=== PATIENT | female | born 1970 | race Caucasian/White ===

== ENCOUNTER → 2019-07-12 | Outpatient (CLI) | payer BC ==
[2019-07-12 10:12] LABS: Basophils % (A) 0 %; Eosinophils # (A) 0.2 k/uL (0-0.7); Eosinophils % (A) 2 %; HCT 44.1 % (34.0-46.0); HGB 14.1 gm/dL (11.4-16.0); Lymphocytes # (A) 1.8 k/uL (1.0-4.8); Lymphocytes % (A) 27 %; MCH 28.2 pg (25.0-35.0); MCHC 31.9 g/dL (31.0-37.0); MCV 88.3 fL (80.0-100.0); Mean Platelet Volume 7.5; Monocytes # (A) 0.3 k/uL (0-1.0); Monocytes % (A) 4 %; Neutrophils # (A) 4.1 k/uL (1.3-7.7); Neutrophils % (A) 64 %; Platelet Count 306 k/uL (150-450); RBC 4.99 m/uL (3.80-5.40); RDW 13.8 % (11.5-15.5); WBC 6.5 k/uL (3.8-10.6)
[2019-07-12 10:21] LABS: African American GFR (CKD) >90 (>60 ml/min/1.73 sqM); Anion Gap 10 mmol/L; Blood Urea Nitrogen 11 mg/dL (7-17); Carbon Dioxide 23 mmol/L (22-30); Chloride 106 mmol/L (98-107); Glucose 95 mg/dL (74-99); Non-African American GFR(CKD) >90 (>60 ml/min/1.73 sqM); Potassium 3.9 mmol/L (3.5-5.1); Sodium 139 mmol/L (137-145)
== END | disposition home or self-care (01) ==
LOC: LABWHC1 09:09
PROVIDERS: ATTEND Obstetrics & Gynecology
DX: Z01.818 Encounter for other preprocedural examination (principal); N83.299 Other ovarian cyst, unspecified side; N83.209 Unspecified ovarian cyst, unspecified side
CPT/HCPCS: 80051; 82565; 82947; 84520; 85025; 87086; 87635

== ENCOUNTER → 2019-07-14 | Outpatient (CLI) | payer BC | END | disposition home or self-care (01) | LOC: LABWHC1 08:46 | PROVIDERS: ATTEND Obstetrics & Gynecology | DX: Z11.59 Encounter for screening for other viral diseases (principal) | CPT/HCPCS: 87635 ==

== ENCOUNTER 2019-07-17 09:21 | Inpatient (IN) | payer BC ==
[2019-07-13 15:21] VITALS: BMI 22.8
[~2019-07-17 09:21] MED LIST: DEXAMETHASONE SOD PHOSPHATE 10 MG/ML 1 ML VIAL IV ONE; HYDROmorphone 0.5 MG/0.5 ML SYRINGE IVP PRN; ONDANSETRON 4 MG/2 ML VIAL IVP ONE
[2019-07-17] MEDS: LACTATED RINGERS 1,000 ML IV SCH ×2 (10:59→23:46)
[2019-07-17] MEDS ORDERED: MIDAZOLAM 2 MG/2 ML VIAL IVP ONE (11:24)
[2019-07-17] MEDS ORDERED: NEOSTIGMINE 1 MG/ML 10 ML VIAL ONE (11:41)
[2019-07-17] MEDS ORDERED: MORPHINE SULFATE (PF) 0.3 MG/0.3 ML SYR ONE (11:41)
[2019-07-17] MEDS ORDERED: fentaNYL (PF) 50 MCG/ML 2 ML AMP ONE (11:41)
[2019-07-17] MEDS ORDERED: SUCCINYLCHOLINE CHLORIDE 100 MG/5 ML SYR IV ONE (11:41)
[2019-07-17] MEDS ORDERED: diphenhydrAMINE 50 MG/ML 1 ML VIAL ONE (11:41)
[2019-07-17] MEDS ORDERED: GLYCOPYRROLATE 0.2 MG/ML 2 ML VIAL ONE (11:41)
[2019-07-17] MEDS ORDERED: PHENYLEPHRINE-0.9% NACL SYG 1 MG/10 ML SYRINGE ONE (11:41)
[2019-07-17] MEDS ORDERED: KETOROLAC 30 MG/ML 1 ML VIAL ONE (11:41)
[2019-07-17] MEDS ORDERED: MIDAZOLAM 2 MG/2 ML VIAL ONE (11:41)
[2019-07-17] MEDS ORDERED: ROCURONIUM BROMIDE 10 MG/ML 5 ML VIAL IV ONE (11:41)
[2019-07-17] MEDS ORDERED: HYDROmorphone (PF) 1 MG/ML ONE (11:41)
[2019-07-17] MEDS ORDERED: PROPOFOL 10 MG/ML 20 ML VIAL IV ONE (11:41)
[2019-07-17] MEDS ORDERED: LIDOCAINE 1% INJ 10MG/ML (20 ML MDV) ONE (11:41)
[2019-07-17] MEDS ORDERED: SODIUM CHLORIDE 0.9% 50 ML with ceFAZolin 2,000 MG IV ONE ×2 (11:52)
[2019-07-17] MEDS ORDERED: ZOLPIDEM 5 MG TAB PO PRN (12:39)
[2019-07-17] MEDS ORDERED: diphenhydrAMINE 50 MG/ML 1 ML VIAL IVP PRN (12:39)
[2019-07-17] MEDS ORDERED: METOCLOPRAMIDE 5 MG/ML 2 ML VIAL IVP PRN (12:39)
[2019-07-17] MEDS ORDERED: IBUPROFEN 600 MG TAB PO PRN (12:39)
[2019-07-17] MEDS ORDERED: ONDANSETRON 4 MG/2 ML VIAL IVP PRN (12:39)
[2019-07-17] MEDS ORDERED: SIMETHICONE 80 MG CHEWABLE PO PRN (12:39)
[2019-07-17] MEDS ORDERED: KETOROLAC 30 MG/ML 1 ML VIAL IVP PRN (12:39)
--- NOTE | 2019-07-17 12:39 | P.OP ---
Date of Procedure: 07/17/19 Preoperative Diagnosis: Complex right ovarian cyst, simple appearing left ovarian cyst Postoperative Diagnosis: Complex fluid-filled benign-appearing right ovarian cyst, hemorrhagic appearing complex left ovarian cyst, suspect hemosalpinx and or endometriosis Procedure(s) Performed: Exploratory laparotomy, pelvic washings, bilateral salpingo-oophorectomy. Anesthesia: GETA Surgeon: Coco Peres Energy Director #1: Roderick Chaudhry Estimated Blood Loss (ml): 30 IV fluids (ml): 400 Urine output (ml): 30 Pathology: other (Bilateral tubes and ovaries) Condition: stable Disposition: PACU Operative Findings: The right ovarian cyst was complex in nature, multiloculated, cystic. The left ovarian cyst appeared hemorrhagic or possibly consistent with endometriosis, with blood noted in the distended left tube. Uterus appeared normal. Description of Procedure: Patient is brought to the operating suite after a spinal with Duramorph is placed preoperatively. She is put in the dorsal supine position. Antibiotics are given. Urine hCG is negative. The appropriate timeout is performed to assure proper patient and procedural identification. Peralta catheter placed to direct drainage. The abdomen is prepped and draped in usual sterile fashion. A low transverse skin incision is made in this is carried down through the subcutaneous tissue. Rash is isolated, scored, and extended bilaterally with curved Schmitt scissors. Peritoneum is next identified and incised, there is no bowel or bladder involvement. Sterile saline is placed in the abdomen and the organs are washed, the fluid is taken aside and a Lukey trap. The right ovary and tube are mobilized and brought into the incision. Keshawn clamps are used across the base of the ovary and the tube and ovary are removed and sent to pathology. Dr. Cleary of pathology for cyst that this appears completely benign. 0 Vicryl suture is used and the pedicle is tied, flashed, and retied for excellent hemostasis. The left ovary is then brought into the surgical field. It to appears distended with multiple loculated cysts, darkened areas and distended dark to possibly consistent with hemosalpinx or endometriosis. The patient requested the ovary to be removed if it with anything more than a simple functional appearing cyst. For this reason, Keshawn clamp is used across the pedicle and the left tube and ovary are also removed intact. 0 Vicryl sutures used to tie the pedicle, it is flashed, and retied again for excellent hemostasis. The uterus appears completely normal to inspection. No other anomalies are identified. Peritoneum was allowed to close by secondary intention. Fascia is closed in a 0 Vicryl stitch, running, with over ligation in the midline. Subcutaneous tissue is irrigated, noted to be clean and dry. 4-0 undyed Monocryl is used for final skin closure. All sponge needle and enhancement counts are correct at the end of the procedure. Peralta is noted to be draining clear urine. Patient is brou ght back to recovery room in excellent condition with a blood pressure of 92/60, pulse 75. Toradol is given prior to leaving the operative suite.
[2019-07-17] MEDS ORDERED: MEPERIDINE 50 MG/ML SYRINGE IVP ONE (13:38)
[2019-07-17] MEDS ORDERED: LACTATED RINGERS 500 ML IV ONE (15:45)
[2019-07-17] MEDS ORDERED: lamoTRIgine 25 MG TAB PO SCH (21:00)
[2019-07-17] MEDS ORDERED: SERTRALINE 100 MG TAB PO SCH (21:00)
[2019-07-17] MEDS ORDERED: ALPRAZolam 0.5 MG TAB PO PRN (21:59)
[2019-07-17 23:46] VITALS: BP 159/59
[2019-07-18] MEDS: LACTATED RINGERS 1,000 ML IV SCH ×2 (01:03)
[2019-07-18 05:01] VITALS: RESP 18
--- NOTE | 2019-07-18 08:20 | P.DS ---
Providers Date of admission: 07/17/19 10:22 Expected date of discharge: 07/18/19 Attending physician: Coco Peres Primary care physician: To[facility] Hospital Course: This is a 48-year-old white female who presented with an enlarged septated right ovarian cyst. A left ovarian cyst was noted sonographically as well. OVA-1 testing was performed and within normal limits. The right ovarian cyst was monitored conservatively, but was noted to have enlarged over the course of 3 months. Decision was made for surgical palliation. Please see admitting history and physical for details. The patient underwent an exploratory laparotomy, bilateral salpingo-oophorectomy under my care. Both cysts were sent to pathology, preliminary diagnosis was that of benign nature. Uterus appeared normal and was left in situ. Patient did well intraoperatively with an estimated blood loss of 30 mL's. Please see dictated operative note for details. This morning the patient is doing well. She is voiding, and bleeding and passing flatus without difficulty. Vital signs are stable and she is afebrile. Incision is clean and dry, intact, Steri-Strips applied. No vaginal bleeding. Pain is well managed. Patient is judged to be in good condition for discharge home. I have reminded her no intercourse, tampons or douching. She will use [id number] Advil or Aleve, or ibuprofen as needed for pain. Incision care and has been reviewed. She will call with any fevers shakes or chills, redness or drainage of the incision, with any pain not alleviated by [id number] products, or indeed with any concerns. Assessment: Doing well postoperative day #1 Plan - Discharge Summary Discharge Rx Participant: No New Discharge Prescriptions: No Action lamoTRIgine [LaMICtal] 25 mg PO HS Sertraline HCl [Zoloft] 100 mg PO HS Loestrin 1-10 Tab 1 tab PO HS Acetaminophen [Tylenol Extra Strength] 500 - 1,000 mg PO DIRECTED PRN PRN Reason: Pain Discharge Medication List Acetaminophen [Tylenol Extra Strength] 500 - 1,000 mg PO DIRECTED PRN 07/13/19 [History] Loestrin 1-10 Tab 1 tab PO HS 07/13/19 [History] Sertraline HCl [Zoloft] 100 mg PO HS 07/13/19 [History] lamoTRIgine [LaMICtal] 25 mg PO HS 07/13/19 [History] Follow up Appointment(s)/Referral(s): Coco Peres MD [STAFF PHYSICIAN] - 2 Weeks
[2019-07-18 09:20] VITALS: PULSE 97
[2019-07-18 09:21] VITALS: TEMP 97.8
--- NOTE | 2019-07-18 10:45 | P.PN ---
Progress Note - Text Progress Note Date: 07/18/19 Patient seen and examined at beside. POD #1 from exploratory laparotomy with spinal duramorph for post operative pain control requested by the surgeon. Patient tolerated procedure well and has no complaints today. Patient denies CP, SOB, fevers, chills, back pain, numbness, headaches, dizziness. Patient can ambulate without difficulty and is voiding normally. procedure site is clean, dry without erythema. All questions answered.
== END 2019-07-18 09:34 | disposition home or self-care (01) | DRG 743 ==
LOC: 2ORMAIN 10:22 → 6PED 13:53
PROVIDERS: ADMIT Obstetrics & Gynecology; ATTEND Obstetrics & Gynecology
PROC: 0UT70ZZ Resection of Bilateral Fallopian Tubes, Open Approach (ICD-10-PCS; principal; 2019-07-17 12:00)
PROC: 0UT20ZZ Resection of Bilateral Ovaries, Open Approach (ICD-10-PCS; principal; 2019-07-17 12:00)
DX: N80.1 Endometriosis of ovary (principal); D27.0 Benign neoplasm of right ovary; D27.1 Benign neoplasm of left ovary; F41.9 Anxiety disorder, unspecified; Z88.2 Allergy status to sulfonamides; Z80.3 Family history of malignant neoplasm of breast; Z88.7 Allergy status to serum and vaccine; Z79.899 Other long term (current) drug therapy
CPT/HCPCS: 80051; 82565; 82947; 84520; 85025; 87086; 87635; 88307; 88342

== ENCOUNTER → 2019-10-02 | Outpatient (CLI) | payer BC ==
--- NOTE | 2019-10-03 09:06 | MM ---
Reason for exam: screening (asymptomatic). Last mammogram was performed 1 year and 7 months ago. History: Patient is postmenopausal. Family history of breast cancer in mother at age 40. Took hormonal contraceptives beginning at age 21. Physical Findings: A clinical breast exam by your physician is recommended on an annual basis and results should be correlated with mammographic findings. MG 3D Screening Mammo W/Cad Bilateral CC and MLO view(s) were taken. Prior study comparison: March 02, 2018, mammogram, performed at [facility]. September 09, 2016, mammogram, performed at [facility]. The breast tissue is heterogeneously dense. This may lower the sensitivity of mammography. Focal asymmetry upper outer right breast zone B. ASSESSMENT: Incomplete: need additional imaging evaluation, BI-RAD 0 RECOMMENDATION: Special view mammogram of the right breast. If lesion persists on supplemental views, image directed ultrasound is recommended. [facility] will attempt to contact patient to return for supplemental views and ultrasound if indicated.
== END | disposition home or self-care (01) ==
LOC: RADMAMWWP 11:19
PROVIDERS: ATTEND Obstetrics & Gynecology
DX: Z08 Encounter for follow-up examination after completed treatment for malignant neoplasm (principal); Z80.3 Family history of malignant neoplasm of breast
CPT/HCPCS: 77063; 77067

== ENCOUNTER → 2019-10-09 | Outpatient (CLI) | payer BC ==
--- NOTE | 2019-10-09 15:02 | MM ---
Reason for exam: additional evaluation requested from abnormal screening. Last mammogram was performed less than 1 month ago. History: Patient is postmenopausal. Family history of breast cancer in mother at age 40. Took hormonal contraceptives beginning at age 21. Physical Findings: Nurse did not find any significant physical abnormalities on exam. MG Work Up Mamm w CAD RT Spot compression CC, spot compression MLO, and ML view(s) were taken of the right breast. Prior study comparison: October 02, 2019, bilateral MG 3d screening mammo w/cad. March 02, 2018, mammogram, performed at [facility]. Area of concern anterior upper outer quadrant does not persist on additional views. These results were verbally communicated with the patient and result sheet given to the patient on 10/09/19. ASSESSMENT: Benign, BI-RAD 2 RECOMMENDATION: Return to routine screening mammogram schedule for both breasts.
== END | disposition home or self-care (01) ==
LOC: RADMAMWWP 06:59
PROVIDERS: ATTEND Obstetrics & Gynecology
DX: R92.8 Other abnormal and inconclusive findings on diagnostic imaging of breast (principal)
CPT/HCPCS: 77065

== ENCOUNTER → 2021-02-25 | Outpatient (CLI) | payer BC ==
--- NOTE | 2021-02-27 14:34 | MM ---
Reason for exam: screening (asymptomatic). Last mammogram was performed 1 year and 5 months ago. History: Patient is postmenopausal. Family history of breast cancer in mother at age 40. Took hormonal contraceptives beginning at age 21. Physical Findings: A clinical breast exam by your physician is recommended on an annual basis and results should be correlated with mammographic findings. MG 3D Screening Mammo W/Cad Bilateral CC and MLO view(s) were taken. Prior study comparison: October 09, 2019, right breast MG work up mamm w CAD RT. October 02, 2019, bilateral MG 3d screening mammo w/cad. There are scattered fibroglandular densities. No significant changes when compared with prior studies. ASSESSMENT: Benign, BI-RAD 2 RECOMMENDATION: Routine screening mammogram of both breasts in 1 year.
== END | disposition home or self-care (01) ==
LOC: RADMAMWWP 07:49
PROVIDERS: ATTEND Obstetrics & Gynecology
DX: Z12.31 Encounter for screening mammogram for malignant neoplasm of breast (principal); Z80.3 Family history of malignant neoplasm of breast; Z78.0 Asymptomatic menopausal state
CPT/HCPCS: 77063; 77067

== ENCOUNTER 2021-10-22 09:09 | Day surgery (SDC) | payer BC ==
[2021-10-20 15:30] VITALS: BMI 24.7
[~2021-10-22 09:09] MED LIST changes: -DEXAMETHASONE SOD PHOSPHATE 10 MG/ML 1 ML VIAL IV ONE; -HYDROmorphone 0.5 MG/0.5 ML SYRINGE IVP PRN; +LACTATED RINGERS 1,000 ML IV SCH; -ONDANSETRON 4 MG/2 ML VIAL IVP ONE
[2021-10-22 09:27] VITALS: TEMP 97.7
[2021-10-22] MEDS ORDERED: PROPOFOL 10 MG/ML 20 ML VIAL IV ONE (09:59)
--- NOTE | 2021-10-22 10:12 | P.PCN ---
Date of Procedure: 10/22/21 Procedure(s) Performed: BRIEF HISTORY: Patient is a 50-year-old pleasant white female scheduled for an elective colonoscopy as a part of screening for colorectal neoplasia. PROCEDURE PERFORMED: Colonoscopy. PREOPERATIVE DIAGNOSIS: Screening for colon cancer. IV sedation per Anesthesia. PROCEDURE: After informed consent was obtained, the patient, was brought into the endoscopy unit. IV sedation was administered by Anesthesia under continuous monitoring. Digital rectal examination was normal. Initially the Olympus CF-160 flexible video colonoscope was then inserted in the rectum, gradually advanced into the cecum without any difficulty. Careful examination was performed as the scope was gradually being withdrawn. Ileocecal valve and the appendiceal orifice were visualized and appeared normal. Prep was excellent. Mucosa of the cecum, ascending colon, transverse colon, descending colon, sigmoid colon, and rectum appeared normal. Retroflexion was performed in the rectum and no lesions were seen. The patient tolerated the procedure well. IMPRESSION: Normal-appearing colon from rectum to cecum with no evidence of colorectal neoplasia. RECOMMENDATIONS: Findings of this examination were discussed with the patient as well as a family. She was advised to have a repeat screening.
[2021-10-22 10:19] VITALS: RESP 16
[2021-10-22 10:37] VITALS: BP 119/83; PULSE 79
== END 2021-10-22 10:50 | disposition home or self-care (01) ==
LOC: ORWHC2ENDO 09:09
PROVIDERS: ATTEND Internal Medicine Gastroenterology
DX: Z12.11 Encounter for screening for malignant neoplasm of colon (principal); J45.909 Unspecified asthma, uncomplicated; I10 Essential (primary) hypertension; Z88.2 Allergy status to sulfonamides; Z88.7 Allergy status to serum and vaccine
CPT/HCPCS: 45378; J2704

== ENCOUNTER → 2022-02-27 | Outpatient (CLI) | payer BC ==
--- NOTE | 2022-02-27 11:07 | MM ---
Reason for Exam: Clinical finding. Last screening mammogram was performed 12 month(s) ago. Indicated Problems: Lump or thickening of the right side for 3 Year(s). Patient History: Menarche at age 17. First Full-Term at age 27. Left ovary removed at age 48. Right ovary removed at age 48. Postmenopausal. Patient has history of breast feeding. Hormonal Contraceptives, starting at age 21. Mother had breast cancer, age 40. Risk Values: Alice 5 year model risk: 1.7%. NCI Lifetime model risk: 15.5%. Prior Study Comparison: 09/09/2016 Screening Mammogram, [facility]. 03/02/2018 Screening Mammogram, [facility]. 10/02/2019 Bilateral Screening Mammogram, [facility]. 10/09/2019 Right Diagnostic Mammogram, [facility]. 02/25/2021 Bilateral Screening Mammogram, [facility]. Tissue Density: There are scattered fibroglandular densities. Findings: No new suspicious mass or worrisome cluster microcalcifications within either breast. Chronic nodularity within both breasts. Overall Assessment: Incomplete: need additional imaging evaluation, BI-RAD 0 Management: Diagnostic Breast Ultrasound of the right breast. A clinical breast exam by your physician is recommended on an annual basis and results should be correlated with mammographic findings. This exam should not preclude additional follow-up of suspicious palpable abnormalities. Results were given to the patient verbally at the time of exam. Electronically signed and approved by: Dougie Luna D.O.
--- NOTE | 2022-02-27 11:18 | USB ---
Reason for Exam: Clinical finding. Patient History: Menarche at age 17. First Full-Term at age 27. Left ovary removed at age 48. Right ovary removed at age 48. Postmenopausal. Patient has history of breast feeding. Hormonal Contraceptives, starting at age 21. Mother had breast cancer, age 40. Risk Values: Alice 5 year model risk: 1.7%. NCI Lifetime model risk: 15.5%. Technique: Method: Targeted. Prior Study Comparison: 10/02/2019 Bilateral Screening Mammogram, [facility]. 10/09/2019 Right Diagnostic Mammogram, [facility]. 02/25/2021 Bilateral Screening Mammogram, [facility]. Findings: The upper outer quadrant of the right breast, the axilla of the right breast and the retroareolar of the right breast were scanned. Targeted ultrasound of the right breast at the root patient's region of palpable abnormality from 8-9 o'clock with additional evaluation of the nipple region and axillary tail. No solid or cystic lesion identified. Dense breast tissue demonstrated.Targeted ultrasound of the right breast at the patient's region of palpable abnormality from 8-9 o'clock with additional evaluation of the nipple region and axillary tail. No solid or cystic lesion identified. Dense breast tissue demonstrated. Overall Assessment: Negative, BI-RAD 1 Management: Screening Mammogram of both breasts in 1 year. A clinical breast exam by your physician is recommended on an annual basis and results should be correlated with mammographic findings. This exam should not preclude additional follow-up of suspicious palpable abnormalities. Results were given to the patient verbally at the time of exam. Electronically signed and approved by: Dougie Luna D.O.
== END | disposition home or self-care (01) ==
LOC: RADMAMWWP 10:22
PROVIDERS: ATTEND Obstetrics & Gynecology
DX: N63.13 Unspecified lump in the right breast, lower outer quadrant (principal); Z80.3 Family history of malignant neoplasm of breast; Z78.0 Asymptomatic menopausal state
CPT/HCPCS: 77062; 77066

== ENCOUNTER → 2023-04-20 | Outpatient (CLI) | payer BC ==
--- NOTE | 2023-04-21 08:26 | MM ---
Reason for Exam: Screening (asymptomatic). Last mammogram was performed 1 year(s) and 2 month(s) ago. Patient History: Menarche at age 17. First Full-Term at age 27. Left ovary removed at age 48. Right ovary removed at age 48. Postmenopausal. Patient has history of breast feeding. Hormonal Contraceptives, starting at age 21. Mother had breast cancer, age 40. Risk Values: Alice 5 year model risk: 1.8%. NCI Lifetime model risk: 15.2%. Prior Study Comparison: 10/09/2019 Right Diagnostic Mammogram, [facility]. 02/25/2021 Bilateral Screening Mammogram, [facility]. 02/27/2022 Bilateral MG 3D diag mammo wo cad SHADY, [facility]. Tissue Density: There are scattered fibroglandular densities. Findings: Analyzed By CAD. There is no suspicious group of microcalcifications or new suspicious mass in either breast. Benign calcifications. Stable bilateral chronic nodularity. Overall Assessment: Benign, BI-RAD 2 Management: Screening Mammogram of both breasts in 1 year. . Patient should continue monthly self-breast exams. A clinical breast exam by your physician is recommended on an annual basis. This exam should not preclude additional follow-up of suspicious palpable abnormalities. Note on Alice scores and lifetime risk: 1. A Alice score greater than 3% is considered moderate risk. If this is the case, consider specialist referral to assess eligibility for a risk reducing agent. 2. If overall lifetime risk for the development of breast cancer is 20% or higher, the patient may qualify for future screening with alternating mammogram and breast MRI. Electronically signed and approved by: Mj Wilson M.D. Radiologis
== END | disposition home or self-care (01) ==
LOC: RADMAMWWP 09:39
PROVIDERS: ATTEND Family Medicine
DX: Z12.31 Encounter for screening mammogram for malignant neoplasm of breast (principal); Z80.3 Family history of malignant neoplasm of breast; Z78.0 Asymptomatic menopausal state
CPT/HCPCS: 77063; 77067

== ENCOUNTER → 2024-08-21 | Outpatient (CLI) | payer BC ==
--- NOTE | 2024-08-21 11:29 | MM ---
Reason for Exam: Screening (asymptomatic). Last mammogram was performed 1 year(s) and 4 month(s) ago. Patient History: Menarche at age 17. First Full-Term at age 27. Left ovary removed at age 48. Right ovary removed at age 48. Postmenopausal. Patient has history of breast feeding. Hormonal Contraceptives, starting at age 21. Mother had breast cancer, age 40. Risk Values: Alice 5 year model risk: 1.9%. NCI Lifetime model risk: 15.0%. Prior Study Comparison: 02/25/2021 Bilateral Screening Mammogram, [facility]. 02/27/2022 Bilateral MG 3D diag mammo wo cad [facility], [facility]. 04/20/2023 Bilateral MG 3D screening mammo w/cad, [facility]. Tissue Density: The breasts are almost entirely fatty. Findings: Analyzed By CAD. Right breast: There is no suspicious group of microcalcifications or new suspicious mass. Left breast: There is no suspicious group of microcalcifications or new suspicious mass. Overall Assessment: Negative, BI-RAD 1 Management: Screening Mammogram of both breasts in [address] [facility] will attempt to contact patient to return for supplemental views and ultrasound if indicated. Patient should continue monthly self-breast exams. A clinical breast exam by your physician is recommended on an annual basis. This exam should not preclude additional follow-up of suspicious palpable abnormalities. Note on Alice scores and lifetime risk: 1. A Alice score greater than 3% is considered moderate risk. If this is the case, consider specialist referral to assess eligibility for a risk reducing agent. 2. If overall lifetime risk for the development of breast cancer is 20% or higher, the patient may qualify for future screening with alternating mammogram and breast MRI. [facility], , 08/21/2024 11:26 AM. Electronically signed and approved by: Michael Ignacio DO
== END | disposition home or self-care (01) ==
LOC: RADMAMWWP 10:47
PROVIDERS: ATTEND Family Medicine
DX: Z12.31 Encounter for screening mammogram for malignant neoplasm of breast (principal); R92.313 Mammographic fatty tissue density, bilateral breasts; Z78.0 Asymptomatic menopausal state; Z80.3 Family history of malignant neoplasm of breast; Z92.0 Personal history of contraception
CPT/HCPCS: 77063; 77067